=== PATIENT | female | born 1955 | race Caucasian/White ===

== ENCOUNTER 2025-03-27 14:29 | Emergency (ER) | payer MEDICARE, SELFPAY ==
[2025-03-27 14:31] VITALS: BP 184/72; PULSE 71; RESP 16; TEMP 36.9; O2SAT 99
--- NOTE | 2025-03-27 14:34 | XR_ITS ---
WS: [id number] Portable AP semiupright chest, 03/27/2025 Clinical Data: Weakness Comparison: None. Findings: No nodules, masses or effusions are seen. The heart is normal. The pulmonary vascularity is not increased. No pneumonia or pneumothorax is seen. There is a permanent cardiac pacemaker with the generator in the left axilla. The aortic arch shows mild tortuosity. Monitor leads are on the chest wall. XR/XR chest 1V portable [id number] Impression: Atherosclerosis.
--- NOTE | 2025-03-27 14:35 | CTR_ITS ---
PROCEDURE INFORMATION: Exam: CT Head Without Contrast Exam date and time: 03/27/2025 2:57 PM Age: 70 years old Clinical indication: Other: Headache/vertigo; PT arrives from home with C/O dizziness, headache, and nausea. PT states she woke yesterday morning around 1000 feeling dizzy and disoriented. Lkn was 03/25/2025 around 2200 when she went to sleep. ; Additional info: Headache and vertigo TECHNIQUE: Imaging protocol: Computed tomography of the head without contrast. Radiation optimization: All CT scans at this facility use at least one of these dose optimization techniques: automated exposure control; mA and/or kV adjustment per patient size (includes targeted exams where dose is matched to clinical indication); or iterative reconstruction. COMPARISON: No relevant prior studies available. RADIATION DOSE METRICS: Total DLP (mGy-cm): 1145.99 FINDINGS: Brain: Moderate, symmetric periventricular white matter hypodensity is present in the frontal and parietal regions. Several small hypodensities are scattered in the subcortical regions, right internal capsule, right caudate nucleus and left putamen. No mass effect or midline shift. No intracranial hemorrhage. Cerebral ventricles: No ventriculomegaly. Paranasal sinuses: Visualized sinuses are unremarkable. No fluid levels. Mastoid air cells: Visualized mastoid air cells are well aerated. Bones: Unremarkable. No acute fracture. Soft tissues: Unremarkable. CT/CT head wo con* [id number] IMPRESSION: Numerous small hypodensities in the basal ganglia and cerebral white matter which most likely reflect small-vessel ischemic changes. The appearance could represent chronic or subacute ischemia, which can be further assessed with MRI in the appropriate clinical setting. Additional symmetric white matter disease is compatible with chronic small-vessel ischemia.
--- NOTE | 2025-03-27 15:03 | W.ED.HA ---
HPI - Headache General: Chief Complaint: Headache Stated Complaint: H/N Time Seen by Provider: 03/27/25 14:30 History of Present Illness: 70-year-old female with a history of pacemaker placement but she is not on any blood thinners, hypertension and obesity who presents emergency room with a headache and dizziness. She says that she has been getting dizzy with movement. She says she has spinning. She had some nausea and vomiting. She was post go see her doctor today but felt so bad she called an ambulance and came to the emergency room. No focal motor deficits. No altered mental status. No chest pain. No abdominal pain. Related Data Previous Rx's ?Medication ?Instructions ?Recorded aspirin 325 mg capsule 325 mg PO DAILY #30 caps 03/27/25 lorazepam 1 mg tablet (Ativan) 1 mg PO BID PRN dizziness or 03/27/25 vertigo #20 tabs meclizine 25 mg tablet 25 mg PO QID PRN dizziness #20 tabs 03/27/25 Review of Systems Narrative: Constitutional symptoms: Negative except as documented in HPI. Skin symptoms: Negative except as documented in HPI. Eye symptoms: Negative except as documented in HPI. ENMT symptoms: Negative except as documented in HPI. Respiratory symptoms: Negative except as documented in HPI. Cardiovascular symptoms: Negative except as documented in HPI. Gastrointestinal symptoms: Negative except as documented in HPI. Genitourinary symptoms: Negative except as documented in HPI. Musculoskeletal symptoms: Negative except as documented in HPI. Neurologic symptoms: Negative except as documented in HPI. Psychiatric symptoms: Negative except as documented in HPI. Endocrine symptoms: Negative except as documented in HPI. Physical Exam Narrative: EXAM NARRATIVE: General: Alert, no acute distress. Skin: Warm, dry. Head: Normocephalic, atraumatic. Neck: Supple, trachea midline. Eye: Extraocular movements are intact. Ears, nose, mouth and throat: mucosa moist. Cardiovascular: Regular, Normal peripheral perfusion. Respiratory: Lungs are clear to auscultation, respirations are non-labored, breath sounds are equal, Symmetrical chest wall expansion. Gastrointestinal: Soft, Nontender, Non distended Musculoskeletal: Normal ROM, no deformity. Neurological: Alert and oriented, No focal neurological deficit observed. Psychiatric: Cooperative, appropriate mood & affect. Course Vital Signs: Vital signs: Vital Signs Temperature 98.4 F 03/27/25 14:31 Pulse Rate 69 03/27/25 15:09 Respiratory Rate 16 03/27/25 14:31 Blood Pressure 184/72 03/27/25 14:31 Pulse Oximetry 100 03/27/25 15:09 Oxygen Delivery Me thod Room Air 03/27/25 15:09 MDM - Headache Medical Decision Making Medical decision making: Differential diagnosis including but not limited to and based on the above HPI, review of systems and physical exam: for patient with complaint of dizziness: stroke, hypotension, hypertension, infection, vertigo, orthostasis Orders placed to evaluate differential diagnosis based on the above differential, HPI and physical exam CT head: Numerous small hypodensities in basal ganglia and cerebral white matter that is most likely small vessel ischemic disease. No acute intracranial process. No intracranial hemorrhage, no evidence of infarct. No evidence of acute fracture. This was reviewed and interpreted by myself the emergency room physician. I also reviewed the radiology report. Patient's symptoms are intermittent and made worse with movement. I do not think this is central but peripheral Chest x-ray: No acute process. No infiltrate. No pneumothorax. This was reviewed and interpreted by myself the emergency room physician. I also reviewed the radiology report. Lab Review: Laboratory results were reviewed and interpreted by myself the emergency room physician. Lab work was unremarkable. No leukocytosis. No anemia. No renal failure. Liver enzymes are normal. I reviewed the patient's medical record. Reexamination: Patient says she feels much better after receiving Ativan. I discussed the findings of small vessel disease and that she needs to take an aspirin and follow-up with her primary about this. No increased work of breathing. No altered mental status. Assessment and plan: Vertigo Small vessel ischemic disease ?IV Ativan and Zofran in the emergency room. - Discharged home - Discussed plan with patient. Answered any questions. - Evaluation and treatment of this problem were appropriate in the emergency setting. Lab Data 03/27/25 14:44 03/27/25 14:44 Radiology Impressions Chest X-Ray 03/27/25 14:34 Impression: Atherosclerosis. Head CT 03/27/25 14:35 IMPRESSION: Numerous small hypodensities in the basal ganglia and cerebral white matter which most likely reflect small-vessel ischemic changes. The appearance could represent chronic or subacute ischemia, which can be further assessed with MRI in the appropriate clinical setting. Additional symmetric white matter disease is compatible with chronic small-vessel ischemia. Laboratory Results WBC 9.69 10^3/uL (3.29-11.43) 03/27/25 14:44 RBC 4.54 10^6/uL (3.85-5.65) 03/27/25 14:44 Hgb 13.30 g/dL (11.27-16.99) 03/27/25 14:44 Hct 41.1 % (36-47) 03/27/25 14:44 MCV 90.5 fl (85-98) 03/27/25 14:44 MCH 29.3 pg (27-33) 03/27/25 14:44 MCHC 32.4 g/dL (30-55) 03/27/25 14:44 RDW 13.0 % (12.1-15.1) 03/27/25 14:44 Plt Count 190 10^3/cmm (157-399) 03/27/25 14:44 MPV 11.6 fL (7.4-10.4) H 03/27/25 14:44 Neut % (Auto) 77.8 % 03/27/25 14:44 Lymph % (Auto) 14.0 % 03/27/25 14:44 Ector % (Auto) 6.1 % 03/27/25 14:44 Eos % (Auto) 1.2 % 03/27/25 14:44 Baso % (Auto) 0.6 % 03/27/25 14:44 Neut # (Auto) 7.53 10^3/uL (1.8-7.7) 03/27/25 14:44 Lymph # (Auto) 1.4 10^3/uL (0.8-4.8) 03/27/25 14:44 Ector # (Auto) 0.6 10^3/uL (0.2-0.9) 03/27/25 14:44 Eos # (Auto) 0.1 10^3/uL (0.0-0.8) 03/27/25 14:44 Baso # (Auto) 0.1 10^3/uL (0.0-0.1) 03/27/25 14:44 Nucleated RBC % (auto) 0 % 03/27/25 14:44 Nucleated RBCs # 0.0 /100WBC 03/27/25 14:44 Sodium 141 mmol/L (136-145) 03/27/25 14:44 Potassium 4.3 mmol/L (3.5-5.1) 03/27/25 14:44 Chloride 104 mmol/L (98-107) 03/27/25 14:44 Carbon Dioxide 26 mmol/L (22-29) 03/27/25 14:44 Anion Gap 15.3 (5-19) 03/27/25 14:44 BUN 17 mg/dL (8-23) 03/27/25 14:44 Creatinine 1.1 mg/dL (0.5-0.9) H 03/27/25 14:44 GFR Calculation 49.2 mL/min (90-130) L 03/27/25 14:44 Glucose 132 mg/dL (65-115) H 03/27/25 14:44 Calculated Osmolality 295 mOsm/kg (285-295) 03/27/25 14:44 Lactic Acid 0.7 mmol/L (0.5-2.2) 03/27/25 14:44 Calcium 9.3 mg/dL (8.5-10.5) 03/27/25 14:44 Total Bilirubin 0.5 mg/dL (0.15-1.2) 03/27/25 14:44 AST 14 U/L (0-32) 03/27/25 14:44 ALT 22 U/L (0-33) 03/27/25 14:44 Alkaline Phosphatase 121 U/L (35-105) H 03/27/25 14:44 Total Protein 6.8 g/dL (6.6-8.7) 03/27/25 14:44 Albumin 4.1 g/dL (3.5-5.2) 03/27/25 14:44 Globulin 2.7 g/dL (1.3-4.6) 03/27/25 14:44 All radiology interpretation(s) finalized by discharge Discharge Plan Discharge Patient Disposition: Home Clinical Impression: Vertigo, Cerebrovascular small vessel disease, Headache Condition: Stable Prescriptions: New lorazepam [Ativan] 1 mg tablet 1 mg PO BID PRN (Reason: dizziness or vertigo) Qty: 20 0RF meclizine 25 mg tablet 25 mg PO QID PRN (Reason: dizziness) Qty: 20 0RF aspirin 325 mg capsule 325 mg PO DAILY Qty: 30 1RF Discharge Orders: Discharge ED (Routine); Ordered 03/27/25 Ordered By: Prema Almonte Discharge Diet: Usual diet Discharge Activity: Increase activity as tolerated Patient Instructions: Vertigo (ED), Benign Paroxysmal Positional Vertigo (ED), Opioid Safety, Pain Management, Patient Portal & Obdulia Instructions Activity Restrictions/Additional Instructions: Thank you for choosing [facility] for your healthcare needs today. You have been screened and evaluated and felt safe for discharge. Health conditions do change or evolve sometimes and as such it is important that you follow up with your Primary Doctor to be re checked, 3-5 days is a general good time frame for follow up. You are always welcome to return to the ED for re assessment if your symptoms are worsening or you have new concerns Print Language: Guinean Coding Level of Care Code ED Improvement Director for Zay Lindsay
[2025-03-27 15:09] VITALS: PULSE 69; O2SAT 100
[2025-03-27 15:18] LABS: Hematocrit 41.1 % (36-47); Hemoglobin 13.30 g/dL (11.27-16.99); Mean Corpuscular HGB Conc 32.4 g/dL (30-55); Mean Corpuscular Hemoglobin 29.3 pg (27-33); Mean Corpuscular Volume 90.5 fl (85-98); Nucleated Red Blood Cells % 0 %; Platelet Count 190 10^3/cmm (157-399); Red Blood Count 4.54 10^6/uL (3.85-5.65); White Blood Count 9.69 10^3/uL (3.29-11.43)
[2025-03-27 15:33] LABS: Lactic Sepsis W/Reflex 0.7 mmol/L (0.5-2.2)
[2025-03-27] MEDS: ondansetron 2 mg/ML SDV 2 mL 8 MG IVP (15:34)
[2025-03-27 15:35] LABS: Alanine Aminotransferase 22 U/L (0-33); Albumin Level 4.1 g/dL (3.5-5.2); Alkaline Phosphatase 121 U/L (35-105); Anion Gap 15.3 (5-19); Aspartate Amino Transferase 14 U/L (0-32); Blood Urea Nitrogen 17 mg/dL (8-23); Calcium 9.3 mg/dL (8.5-10.5); Carbon Dioxide 26 mmol/L (22-29); Chloride 104 mmol/L (98-107); Globulin 2.7 g/dL (1.3-4.6); Glucose 132 mg/dL (65-115); Osmolality Calculated 295 mOsm/kg (285-295); Potassium 4.3 mmol/L (3.5-5.1); Sodium 141 mmol/L (136-145); Total Protein 6.8 g/dL (6.6-8.7)
[2025-03-27] MEDS: LORazepam 1 MG/0.5 ML injection IVP (15:35)
[2025-03-27 16:08] LABS: Respiratory Syncytial Virus Ce NEGATIVE (Negative); SARS-CoV-2 PCR NEGATIVE (Negative)
[2025-03-27 16:12] LABS: Glucose Urine UA Negative (Normal); Nitrate Urine Negative (Negative); Specific Gravity, Urine 1.013 (1.005-1.030)
[2025-03-27 16:25] VITALS: BP 168/70; PULSE 82; O2SAT 96
== END 2025-03-27 16:27 | disposition home or self-care (01) ==
PROVIDERS: Emergency Provider Emergency Medicine
DX: R42 Dizziness and giddiness (principal); I67.89 Other cerebrovascular disease; R51.9 Headache, unspecified; Z79.82 Long term (current) use of aspirin; Z95.0 Presence of cardiac pacemaker
CPT/HCPCS: 36415; 70450; 71045; 80053; 81001; 83605; 85025; 87040; 87077; 87086; 87186; 87637; 96374; 96375; 99285; J2060; J2405

== ENCOUNTER → 2025-04-10 13:06 | Outpatient (BNVA) | payer MEDICARE, SELFPAY | PROVIDERS: PCP Nurse Practitioner Family; Visit Provider Podiatrist Foot & Ankle Surgery | DX: E11.42 Type 2 diabetes mellitus with diabetic polyneuropathy (principal); L60.3 Nail dystrophy; L60.8 Other nail disorders; G62.9 Polyneuropathy, unspecified; Z79.4 Long term (current) use of insulin | CPT/HCPCS: 11721; 99203 ==

== ENCOUNTER → 2025-06-04 14:38 | Outpatient (BNVA) | payer MEDICARE, SELFPAY | PROVIDERS: PCP Nurse Practitioner Family; Referring Provider Nurse Practitioner Family; Visit Provider Internal Medicine | DX: E78.5 Hyperlipidemia, unspecified (principal); E11.9 Type 2 diabetes mellitus without complications; Z79.4 Long term (current) use of insulin; Z95.0 Presence of cardiac pacemaker; R06.02 Shortness of breath; R07.9 Chest pain, unspecified; R94.31 Abnormal electrocardiogram [ECG] [EKG] | CPT/HCPCS: 93005; 99204 ==